=== PATIENT | female | born 1980 | race Caucasian/White ===

== ENCOUNTER → 2018-01-02 13:05 | Outpatient (CLI) | payer SELFPAY ==
--- NOTE | 2018-01-02 13:13 | RAD_ITS ---
STUDY: X-RAY - LUMBAR SPINE REASON FOR EXAM: Female, 37 years old. Back pain. TECHNIQUE: 3 view(s) of the lumbar spine were obtained. COMPARISON: None FINDINGS: Normal lumbar lordosis. There is no substantial scoliosis. There is a normal alignment of the vertebrae. Normal vertebral bodies and endplates. Normal disc space heights. There is no demonstrated fracture. The soft tissue structures are unremarkable. RAD/Lumbar Spine 2 or 3 Views IMPRESSION: Normal x-ray examination of the lumbar spine. Electronically Signed: Puneet Hernandez MD at 13:44 EST , Service support ,
== END ==
PROVIDERS: Family Provider Family Medicine; PCP Family Medicine; Visit Provider Anesthesiology Pain Medicine
DX: M54.9 Dorsalgia, unspecified (principal)
CPT/HCPCS: 72100

== ENCOUNTER → 2018-05-15 10:43 | Outpatient (CLI) | payer OTHER, SELFPAY ==
[2018-05-15 11:30] LABS: Amphetamine Urine VISTA NEGATIVE (<1000 ng/mL); Barbiturate Urine VISTA NEGATIVE (< 200 ng/mL); Benzodiazepine Urine VISTA NEGATIVE (< 200 ng/mL); Cocaine Urine VISTA NEGATIVE (< 300 ng/mL); Ecstacy Urine VISTA NEGATIVE (< 500 ng/mL); Methadone Urine VISTA NEGATIVE (< 300 ng/mL); PCP Urine VISTA NEGATIVE (< 25 ng/mL); THC Urine VISTA NEGATIVE (< 50 ng/mL); Vista UDS pH Range 6
== END ==
PROVIDERS: Family Provider Family Medicine; PCP Family Medicine; Visit Provider Anesthesiology Pain Medicine
DX: F11.20 Opioid dependence, uncomplicated (principal)
CPT/HCPCS: 80307

== ENCOUNTER → 2018-11-08 09:33 | Outpatient (CLI) | payer OTHER, SELFPAY ==
[2018-11-08 11:42] LABS: T4 Total, Thyroxin 7.3 ug/dL (4.8-13.9); Thyroid Stim Hormone (TSH) 1.61 uIU/mL (0.358-3.74)
== END ==
PROVIDERS: Family Provider Family Medicine; PCP Family Medicine; Referring Provider Otolaryngology Otolaryngology/Facial Plastic Surgery; Visit Provider Otolaryngology Otolaryngology/Facial Plastic Surgery
DX: J32.9 Chronic sinusitis, unspecified (principal); J34.89 Other specified disorders of nose and nasal sinuses; B99.9 Unspecified infectious disease
CPT/HCPCS: 36415; 84436; 84443; 87070; 87077; 87186; 87205

== ENCOUNTER → 2018-12-09 08:37 | Outpatient (CLI) | payer OTHER, SELFPAY ==
--- NOTE | 2018-12-09 08:40 | CT_ITS ---
STUDY: CT MAXILLOFACIAL SINUSES REASON FOR EXAM: Female, 38 years old. Deviated septum, sinusitis RADIATION DOSAGE (If Supplied By Facility): CTDIvol = ( 33.06 ) mGy, DLP = ( 825.58 ) mGycm TECHNIQUE: The patient was scanned in a multi detector CT scanner. High resolution axial imaging was performed without the administration of intravenous contrast material. Sagittal and coronal images were reconstructed. Individualized dose optimization techniques were used for this CT. COMPARISON: None. FINDINGS: FRONTAL SINUSES: Normal aeration, without mucosal inflammatory disease. ETHMOIDAL SINUSES: Normal aeration, without mucosal inflammatory disease. MAXILLARY SINUSES: Normal aeration, without mucosal inflammatory disease. SPHENOIDAL SINUSES: Normal aeration, without mucosal inflammatory disease. There is patency of the bilateral maxillary infundibuli with normal uncinate processes, ethmoid bullae, and hiatus semilunaris. Normal bilateral middle turbinates. Normal bilateral inferior turbinates. There is a right sided nasal septal deviation, but without a nasal septal spur. There is patency of the bilateral nasal airways. The visualized osseous structures are normal. The visualized bilateral orbital contents are normal. There is hypertrophy of the palatine tonsils. CT/Sinus/Facial Bone IMPRESSION: 1. No paranasal sinus disease. 2. Mild right nasal septal deviation with apical spur. 3. Moderate bilateral palatine tonsillar hypertrophy. Correlation with physical exam/direct visualization suggested. Electronically Signed: Maciel Arce MD at 17:58 EST , Service support ,
== END ==
PROVIDERS: Family Provider Family Medicine; PCP Family Medicine; Referring Provider Otolaryngology Otolaryngology/Facial Plastic Surgery; Visit Provider Otolaryngology Otolaryngology/Facial Plastic Surgery
DX: J32.9 Chronic sinusitis, unspecified (principal)
CPT/HCPCS: 70486

== ENCOUNTER 2018-12-28 07:39 | Day surgery (SDC) | payer OTHER, SELFPAY ==
[2018-12-28] VITALS (7 sets, daily range): BP systolic 114–133; BP diastolic 78–93; PULSE 96–114; RESP 16–18; TEMP 36.1–36.9; O2SAT 94–99; BMI 32.2
--- NOTE | 2018-12-28 | CART_PTH ---
PATIENT: LORI OSPINA LOC: [facility] [place] U#:[id number] AGE/SX: 38/F ROOM: RE12/28/[address]: Cj Rea MD : 1980 BED: DIS: 12/28/2018 SPEC #: [id number] RECD: 12/28/18 14:55 STATUS: TALIB CHRISTIAN #: [id number] LUIS ENRIQUE: 12/28/18 00:[address]: Cj Rea DEPT: SURGICAL PATHOLOGY RECD BY: Bud Taylor ENTERED: 12/29/18 10:58 SP TYPE: DONOVAN WOODS DR: Dr. Jesus Gutierrez MD Tissues: Fibrous tissue Procedures: Decalcification bone/plaque Surgery Specimen Level III HEADER OPERATION: Septoplasty, turbinate cautery PRE-OP DIAGNOSIS: Nasal congestion, deviated nasal septum, hypertrophy of nasal turbinates TISSUE SUBMITTED: Nasal bone and cartilage MICROSCOPIC DIAGNOSIS Nasal bone and cartilage, septoplasty: Fragments of hyaline cartilage and bone with reparative and reactive change. Minute fragments of respiratory mucosa and submucosa with no significant pathologic change. AM:alexandr 01/03/19 MICROSCOPIC DESCRIPTION Slides are reviewed. GROSS DESCRIPTION Received in fixative is one container labeled with the patient's name and designated nasal bone and cartilage. The specimen consists of multiple fragments of cartilage and bone that in aggregate measure 3 x 2.5 x 0.3 cm. The entire specimen is submitted in one cassette after decalcification. / CLIF:alexandr 12/29/18 TC:5 CPT: 21333, 76190
[2018-12-28] MEDS: Oxymetazoline 0.05% 1 SPRAY SPRAY.BTL 15 SPRAY (09:30)
[2018-12-28] MEDS: Mixture 30 ML Bottle TOPICAL (09:30)
[2018-12-28] MEDS: Neomycin/Bacitracin/Polymyxin Ointment 1 APPLIC (09:30)
--- NOTE | 2018-12-28 10:45 | PCM.DC ---
You will use the following diet at home:: No restrictions Discharge Activity: Return to Normal Activity - Head of bed elevation, do not blow nose, but should sniff saline and clear nasal passages at least three times per day, and more as desired. Afrin 12 hour spray may be used to stop any annoying oozing and to help relieve stuffiness Take antibiotic as prescribed Allergies/Adverse Reactions: Allergies No Known Allergies Allergy (Verified 12/28/18 08:01) Medications to take at Discharge DiphenhydrAMINE [Benadryl] 50 mg PO QHS PRN PRN 12/21/18 Fluoxetine [Prozac] 20 mg PO DAILY 12/21/18 Ibuprofen 200 mg PO PRN PRN 12/21/18 Oxymetazoline HCl [Afrin] 30 ml NS PRN PRN 12/21/18 Primary Care Physician: Jesus Gutierrez MD [Primary Care Provider] - Test Results: Test results from this visit will be discussed in further detail at your follow-up appointment, if applicable. Please Follow Up With: Cj Rea MD - follow up Tuesday01-09-19 for splint removal per Dr River Bocanegra in my absence, and then follow up with me the week after that.
--- NOTE | 2018-12-28 10:49 | DCINST_ITS ---
You will use the following diet at home:: No restrictions Discharge Activity: Return to Normal Activity - Head of bed elevation, do not b low nose, but should sniff saline and clear nasal passages at least three times per day, and more as desired. Afrin 12 hour spray may be used to stop any annoying oozing and to help relieve stuffiness Take antibiotic as prescribed Allergies/Adverse Reactions: Allergies No Known Allergies Allergy (Verified 12/28/18 08:01) Medications to take at Discharge DiphenhydrAMINE [Benadryl] 50 mg PO QHS PRN PRN 12/21/18 Fluoxetine [Prozac] 20 mg PO DAILY 12/21/18 Ibuprofen 200 mg PO PRN PRN 12/21/18 Oxymetazoline HCl [Afrin] 30 ml NS PRN PRN 12/21/18 Primary Care Physician: Jesus Gutierrez MD [Primary Care Provider] - Test Results: Test results from this visit will be discussed in further detail at your follow- up appointment, if applicable. Please Follow Up With: Cj Rea MD - follow up Tuesday01-09-19 for splint removal per Dr River Bocanegra in my absence, and then follow up with me the week after that.
--- NOTE | 2018-12-28 11:57 | OP.PCM_ITS ---
Report of Operation Date of Procedure: 12/28/18 Pre-Operative Diagnosis: Nasal airway obstruction secondary to septal deformity and turbinate hypertrophy Post-Operative Diagnosis: Same Surgery/Procedure Performed:: Nasal septoplasty, therapeutic outfracture of inferior turbinates with subsequent submucosal cautery using Singh bipolar probe Type of Anesthesia:: General - General endotracheal anesthesia per Taylor Jay CRNA Specimen's removed: Fragments of nasal septal cartilage and bone Estimated Blood Loss (mL): 35 ml Description of Procedure: The patient was transported to the operating room and placed on the OR table in the supine position. After the administration of adequate general endotracheal anesthesia, the patient was appropriately positioned, eyes were treated and taped closed. A head drape was applied but did not cover the eye gentile. Nasal cavity was inspected. The left inferior turbinate was very bulky. The septum was markedly deviated to the right side in such fashion that it literally was up against the right inferior turbinate. Even after Afrin had been applied to the turbinates to bring about vasoconstriction and decongestion the septum was still in contact with the right inferior turbinate. Previous trauma had completely displaced the septum into the right nasal chamber literally producing 90% obstruction of the right side. A cottonoid pledget soaked in Matt-Synephrine Xylocaine was placed on each side to constrict the turbinates further. 1% Xylocaine with epinephrine 1-100,000 was used to infiltrate the columellar area of the septum as well as the soft tissues overlying the concave left side of the septum. Pledgets were subsequently removed and the nose reexamined. The impression was entirely the same. She had virtually no airway on the right side. With #15 scalpel a right hemitransfixion incision was created and the soft tissues were elevated in the subperichondrial plane along the left side of the septum. The tunnel was carried posteriorly to elevate in the subperiosteal plane along the vomer and perpendicular plate of the ethmoid. This septal flap was totally mobilized and did not sustain any trauma. It was a fully intact flap. Just anterior to the chondro-osseous junction, the Hampton elevator was used to make a cut and allow a posterior tunnel to be elevated along the right side of the septum. This skeletonized the bony aspect of the septum which was subsequently removed with the benefit of double-action scissors and forceps. There was a large stellate spur posteriorly that upon its removal there did occur a tear in the mucoperiosteal flap. Had a defect not occurred one would have been placed intentionally just to allow egress of any retained serosanguineous or bloody fluid. Anteriorly the quadrangular cartilage was mobilized. It was scored to allow some benefit of straightening and it was subsequently placed into the midline and secured. Even without any splint, the septum appeared to be near midline and the airway greatly improved. Although this may not be a 50-50 airway, it certainly was close, and with benefit of good healing should make a marked improvement for her. The hemitransfixion incision was closed with interrupted suture of 4-0 chromic. Prior to that, some FloSeal was placed into the dissected area for hemostasis along the laceration po steriorly. The inferior turbinates were then laterally outfractured into the inferior meatus and subsequently treated with the Singh bipolar probe. The probe was placed into the anterior aspect of the turbinate, current was applied, and when appropriate blanching was evident, the probe was advanced the length of the turbinate accomplishing inferomedial submucosal cautery. The posterior tips received additional cautery with benefit of the 0 degree endoscope for guidance. Overall the airway seemed greatly improved and the septum was supported by placement of Noble airway splints. They were first coated with antibiotic ointment, placed into the nasal chamber, and secured anteriorly with a single suture of 3-0 Ethilon. A nasal drip pad was applied and the procedure terminated. The patient tolerated the procedure well, did not sustain any intraoperative anesthetic or surgical complication, was extubated in the operating room and taken to the PACU where she was noted to be in satisfactory condition. Cj Rea MD - Complications None
[2018-12-28] MEDS: HYDROcodone Bitartrate/Apap 5/325 Tablet PO (12:30)
== END 2018-12-28 13:08 | disposition home or self-care (01) ==
LOC: SDC 07:41 → AC 07:41
PROVIDERS: Family Provider Family Medicine; PCP Family Medicine; Referring Provider Otolaryngology Otolaryngology/Facial Plastic Surgery; Visit Provider Otolaryngology Otolaryngology/Facial Plastic Surgery
PROC: (CPT 30520; principal; 2018-12-28 09:05)
DX: J34.2 Deviated nasal septum (principal); J34.3 Hypertrophy of nasal turbinates; R09.81 Nasal congestion; F41.9 Anxiety disorder, unspecified; F32.9 Major depressive disorder, single episode, unspecified; F17.210 Nicotine dependence, cigarettes, uncomplicated; Z79.899 Other long term (current) drug therapy
CPT/HCPCS: 30520; 30930; 88304; 88311; J7120; J2405